=== PATIENT | female | born 1990 | race Hispanic/Latino ===

== ENCOUNTER 2018-01-12 04:08 | Emergency (ER) | payer BC, SELFPAY | END 2018-01-12 05:14 | disposition home or self-care (01) | LOC: ERS 04:08 | DX: A60.04 Herpesviral vulvovaginitis (principal) | CPT/HCPCS: 99282 ==

== ENCOUNTER 2018-06-08 21:37 | Emergency (ER) | payer OTHER, SELFPAY ==
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
[2018-06-08] MEDS ORDERED: Acetaminophen 500 MG TAB ONE (22:51)
== END 2018-06-08 23:08 | disposition home or self-care (01) ==
LOC: ERS 21:37
DX: S39.012A Strain of muscle, fascia and tendon of lower back, initial encounter (principal); V43.62XA Car passenger injured in collision with other type car in traffic accident, initial encounter
CPT/HCPCS: 72100

== ENCOUNTER 2019-02-01 08:32 | Emergency (ER) | payer OTHER, SELFPAY ==
--- NOTE | 2019-02-01 08:48 | RAD ---
EXAM: XR Ankle Rt 3 View STANDARD PROVIDED CLINICAL HISTORY: Pain FINDINGS: There is no evidence for fracture or other acute osseous abnormality. Alignment appears anatomic. Mary nt spaces appear preserved. IMPRESSION: No evidence for an acute osseous abnormality. If there is persistent clinical concern, conservative m anagement and follow-up imaging advised.
== END 2019-02-01 09:10 | disposition home or self-care (01) ==
LOC: ERS 08:32
DX: S93.401A Sprain of unspecified ligament of right ankle, initial encounter (principal); W18.09XA Striking against other object with subsequent fall, initial encounter

== ENCOUNTER 2022-06-13 15:58 | Emergency (ER) | payer SELFPAY ==
[2022-06-13 18:13] LABS: SARS-CoV-2 NAA Rapid Test Not Detected (NotDetected)
== END 2022-06-13 18:25 | disposition home or self-care (01) ==
LOC: ERS 15:58
DX: B34.9 Viral infection, unspecified (principal); Z20.822 Contact with and (suspected) exposure to COVID-19
CPT/HCPCS: 87081; 87430; 99283